=== PATIENT | male | born 1935 | race Caucasian/White ===

== ENCOUNTER → 2020-09-24 | Outpatient (CLI) | payer MEDICARE ==
--- NOTE | 2020-09-25 01:29 | RAD ---
EXAM: PA, oblique and lateral views of the left hand DATE: 09/24/2020 4:06 PM INDICATION: Reason: LEFT HAND PAIN / Spl. Instructions: / History: COMPARISON: No Prior FINDINGS: Oblique fracture through the proximal fifth metacarpal shaft. Associated foreshortening of the fifth metacarpal. 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 IMPRESSION: 1. Acute oblique fracture through the base of the fifth metacarpal. 2. Multifocal degenerative changes Electronically signed by: Tra Hager MD (09/25/2020 1:26 AM) [facility]
== END ==
LOC: DXRAD 15:59
PROVIDERS: ATTEND Nurse Practitioner Adult Health
DX: S62.307A Unspecified fracture of fifth metacarpal bone, left hand, initial encounter for closed fracture (principal); M19.042 Primary osteoarthritis, left hand; X58.XXXA Exposure to other specified factors, initial encounter; Y93.89 Activity, other specified; Y92.89 Other specified places as the place of occurrence of the external cause; Y99.8 Other external cause status
CPT/HCPCS: 73130